=== PATIENT | female | born 1990 | race Caucasian/White ===

== ENCOUNTER 2018-05-26 13:53 | Emergency (ER) | payer OTHER ==
[~2018-05-26] VITALS: Ht 154.9 cm; Wt 77.1 kg
[~2018-05-26 13:53] MED LIST: FLUO-387 PO; METF500T PO
[2018-05-26 13:56] VITALS: BP 131/76
--- NOTE | 2018-05-26 14:05 | NUR ---
PATIENT PRESENTS TO ED WITH C/O LEFT FOOT PAIN X 2 WEEKS; DENIES ANY INJURY;DENIES NUMBNESS/TINGLING SENSATION;PAIN IS AGGRAVATED BY PRESSURE. NO SKIN DISCOLORATION;SKIN IS PINK/WARM/DRY; AAOX4 WITH EVEN AND STEADY GAIT;PATIENT POSITIONED FOR COMFORT; HOB ELEVATED; BEDRAILS UP X2; BED DOWN. ER MD MADE AWARE OF PT STATUS.
--- NOTE | 2018-05-26 14:36 | NUR ---
xray at bedside.
--- NOTE | 2018-05-26 15:09 | NUR ---
Patient discharged with v/s stable. Written and verbal after care instructions given and explained. Patient alert, oriented and verbalized understanding of instructions. Ambulatory with by parent. All questions addressed prior to discharge. ID band removed. Patient advised to follow up with PMD. Rx of TRAMADOL given. Patient educated on indication of medication including possible reaction and side effects. Opportunity to ask questions provided and answered.
[2018-05-26 15:10] VITALS: BP 132/85
== END 2018-05-26 15:09 | disposition home or self-care (01) ==
LOC: MED 13:53
DX: M72.2 Plantar fascial fibromatosis (principal); E11.9 Type 2 diabetes mellitus without complications; Z79.84 Long term (current) use of oral hypoglycemic drugs; Z79.899 Other long term (current) drug therapy; Z88.0 Allergy status to penicillin
CPT/HCPCS: 73630; 82948; 99283; Q0092

== ENCOUNTER 2022-04-22 16:55 | Emergency (ER) | payer OTHER ==
[~2022-04-22] VITALS: Ht 154.9 cm; Wt 109.8 kg
[~2022-04-22 16:55] MED LIST changes: +METF-346 PO; -METF500T PO
[2022-04-22 17:22] VITALS: BP 126/87
--- NOTE | 2022-04-22 18:00 | NUR ---
32 Y/O FEMALE BIB SELF C/O CONSTIPATION AND GEN ABD [id number], PT STATES 1 EPISODE OF VOMITING WITH "TINGE OF BLOOD", TAKES PEPTO BISMOL WITH MODERATE EFFECT ALLERGY: PCN, PORK PMH: DM
[2022-04-22] MEDS ORDERED: ONDA-188 PO (18:54)
[2022-04-22] MEDS ORDERED: BEN10 PO (18:54)
[2022-04-22] MEDS ORDERED: MIRABULK PO (18:54)
[2022-04-22] MEDS ORDERED: DICYCLOMINE 10 MG CAP PO ONE (18:55)
[2022-04-22] MEDS ORDERED: ONDANSETRON 4 MG ODT PO ONE (18:55)
--- NOTE | 2022-04-22 19:04 | NUR ---
Patient discharged with v/s stable. Written and verbal after care instructions ABOUT CONSTIPATION given and explained. Patient alert, oriented and verbalized understanding of instructions. Ambulatory with steady gait. All questions addressed prior to discharge. ID band removed. Patient advised to follow up with PMD. Rx of BENTYL, MIRALAX, ZOFRAN ODT given. Patient educated on indication of medication including possible reaction and side effects. Opportunity to ask questions provided and answered.
== END 2022-04-22 19:04 | disposition home or self-care (01) ==
LOC: MED 16:55
DX: K59.00 Constipation, unspecified (principal); R11.2 Nausea with vomiting, unspecified; E11.9 Type 2 diabetes mellitus without complications; Z79.84 Long term (current) use of oral hypoglycemic drugs; Z79.899 Other long term (current) drug therapy; Z88.0 Allergy status to penicillin
CPT/HCPCS: 74018; 99283; Q0162

== ENCOUNTER 2022-07-09 12:17 | Emergency (ER) | payer OTHER ==
[~2022-07-09] VITALS: Ht 154.9 cm; Wt 112.9 kg
[~2022-07-09 12:17] MED LIST changes: +BEN10 PO; +MIRABULK PO; +ONDA-188 PO
[2022-07-09 12:28] VITALS: BP 114/89
--- NOTE | 2022-07-09 12:36 | NUR ---
PT AMBULATED TO BED 7
--- NOTE | 2022-07-09 12:37 | NUR ---
MD SHIELDS AT BEDSIDE FOR EVALUATION
[2022-07-09] MEDS ORDERED: ONDANSETRON 4 MG ODT PO ONE (12:50)
--- NOTE | 2022-07-09 12:52 | NUR ---
XRAY AT BEDSIDE
--- NOTE | 2022-07-09 12:55 | NUR ---
32YO FEMALE PT C/O MID ABD PAIN X4DAYS. REPORTS SUDDEN ONSET W/ PAIN AT MOST AFTER HAVING BM. STATES TAKING BENTYL W/ MILD RELIEF. ABD NON DISTENED OR TENDER. DENIES N/V/D, CONSTIPATION, FEVER CHILLS OR CHANGE IN DIET. PT AAOX4, HOB POSITIONED PER COMFORT HX: IBS ALLERGIES: PENICILLIN
--- NOTE | 2022-07-09 12:59 | NUR ---
LAB AT BEDSIDE
[2022-07-09 13:09] LABS: BASOPHILS # (AUTO) 0.1 K/uL (0.00-0.22); BASOPHILS % (AUTO) 0.7 % (0.0-2.0); EOSINOPHILS # (AUTO) 0.2 K/uL (0-0.4); EOSINOPHILS % (AUTO) 1.8 % (0.0-4.0); HEMATOCRIT 39.3 % (36-48); HEMOGLOBIN 13.3 g/dL (12.0-16.0); LYMPHOCYTES # (AUTO) 3.3 K/uL (2.5-16.5); LYMPHOCYTES % (AUTO) 32.2 % (20.5-51.1); MEAN CORPUSCULAR HEMOGLOBIN 29 pg (27-31); MEAN CORPUSCULAR HGB CONC 34 g/dL (33-37); MEAN CORPUSCULAR VOLUME 84.4 fL (80-94); MONOCYTES # (AUTO) 0.5 K/uL (0.8-1.0); MONOCYTES % (AUTO) 4.7 % (1.7-9.3); NEUTROPHILS # (AUTO) 6.3 K/uL (1.8-7.7); NEUTROPHILS % (AUTO) 60.6 % (42.2-75.2); PLATELET COUNT (AUTO) 276 K/uL (140-450); RED BLOOD CELL COUNT(AUTO) 4.66 MIL/uL (4.20-5.40); RED CELL DISTRIBUTION WIDTH 13.5 % (11.6-13.7); WHITE BLOOD COUNT (AUTO) 10.3 K/uL (4.8-10.8)
[2022-07-09 13:25] LABS: ALBUMIN 3.8 g/dL (3.4-5.0); ANION GAP 12.5 (8-16); CARBON DIOXIDE 27.6 mmol/L (21-32); CREATININE 0.8 mg/dL (0.6-1.3); POTASSIUM 4.1 mmol/L (3.5-5.1); TOTAL BILIRUBIN 0.2 mg/dL (0.0-1.0)
[2022-07-09] MEDS ORDERED: DOCU-299 PO (13:53)
[2022-07-09] MEDS ORDERED: POLY17PD72 PO (13:53)
--- NOTE | 2022-07-09 14:23 | NUR ---
Patient discharged with v/s stable. Written and verbal after care instructions ABOUT CONSTIPATION given and explained. Patient alert, oriented and verbalized understanding of instructions. Ambulatory with steady gait. All questions addressed prior to discharge. ID band removed. Patient advised to follow up with PMD. Rx of COLACE AND CLEARLAX given. Patient educated on indication of medication including possible reaction and side effects. Opportunity to ask questions provided and answered.
--- NOTE | 2022-07-09 14:25 | NUR ---
The patient's care was reviewed and supervised by Frida Mccormick RN.
== END 2022-07-09 14:25 | disposition home or self-care (01) ==
LOC: MED 12:17
DX: R10.9 Unspecified abdominal pain (principal); E11.9 Type 2 diabetes mellitus without complications; Z79.899 Other long term (current) drug therapy; Z91.018 Allergy to other foods; Z88.0 Allergy status to penicillin
CPT/HCPCS: 36415; 74018; 80053; 83690; 84703; 85025; 99284; Q0162

== ENCOUNTER 2022-09-17 15:37 | Emergency (ER) | payer OTHER ==
[~2022-09-17] VITALS: Ht 157.5 cm; Wt 90.7 kg
[~2022-09-17 15:37] MED LIST changes: +DOCU-299 PO; +POLY17PD72 PO
[2022-09-17 15:53] VITALS: BP 122/76
--- NOTE | 2022-09-17 16:04 | NUR ---
MD SHIELDS AT BEDSIDE FOR EVALUATION
--- NOTE | 2022-09-17 16:10 | NUR ---
Pt bibs for abd pain x 2 days. Pain is constant, worse with movement, non radiating, 8/10, sometime pressure helps the pain. Denies abnormalities when urinating or passing stool. Pt is a/o x 4, vss, no ss of acute distress, breathing equal and unlabored, speech clear. UA labeled and sent to lab.
[2022-09-17 16:20] LABS: BASOPHILS % (AUTO) 0.3 % (0.0-2.0); EOSINOPHILS # (AUTO) 0.2 K/uL (0-0.4); EOSINOPHILS % (AUTO) 2.1 % (0.0-4.0); HEMATOCRIT 39.2 % (36-48); HEMOGLOBIN 13.2 g/dL (12.0-16.0); LYMPHOCYTES # (AUTO) 2.4 K/uL (2.5-16.5); LYMPHOCYTES % (AUTO) 29.7 % (20.5-51.1); MEAN CORPUSCULAR HEMOGLOBIN 28 pg (27-31); MEAN CORPUSCULAR HGB CONC 34 g/dL (33-37); MEAN CORPUSCULAR VOLUME 84.5 fL (80-94); MONOCYTES # (AUTO) 0.4 K/uL (0.8-1.0); NEUTROPHILS # (AUTO) 5.1 K/uL (1.8-7.7); NEUTROPHILS % (AUTO) 62.9 % (42.2-75.2); PLATELET COUNT (AUTO) 310 K/uL (140-450); RED BLOOD CELL COUNT(AUTO) 4.64 MIL/uL (4.20-5.40); RED CELL DISTRIBUTION WIDTH 13.9 % (11.6-13.7); WHITE BLOOD COUNT (AUTO) 8.2 K/uL (4.8-10.8)
[2022-09-17 16:39] LABS: ALBUMIN 3.9 g/dL (3.4-5.0); ANION GAP 12.1 (8-16); CARBON DIOXIDE 27.1 mmol/L (21-32); CREATININE 0.7 mg/dL (0.6-1.3); POTASSIUM 4.2 mmol/L (3.5-5.1); TOTAL BILIRUBIN 0.4 mg/dL (0.0-1.0)
[2022-09-17] MEDS ORDERED: ACET-1182 PO (17:51)
--- NOTE | 2022-09-17 18:15 | NUR ---
Pt requesting pain medication before dc. MD notified and gave order for medication before dc.
[2022-09-17] MEDS ORDERED: KETOROLAC 15 MG/ML VIAL IVP ONE (18:30)
--- NOTE | 2022-09-17 18:41 | NUR ---
Medicated as ordered, pt tolerated well. Patient discharged with v/s stable. Written and verbal after care instructions given and explained. Patient alert, oriented and verbalized understanding of instructions. Ambulatory with steady gait. All questions addressed prior to discharge. ID band removed. Patient advised to follow up with PMD. Patient educated on indication of medication including possible reaction and side effects. Opportunity to ask questions provided and answered.
[2022-09-17 18:49] VITALS: BP 119/73
[2022-09-17 19:46] LABS: APPEARANCE,URINE CLEAR (CLEAR); BILIRUBIN,URINE NEGATIVE (NEGATIVE); BLOOD, URINE NEGATIVE (NEGATIVE); COLOR,URINE YELLOW (YELLOW); LEUKOCYTE ESTERASE ,URINE NEGATIVE (NEGATIVE); NITRITE, URINE NEGATIVE (NEGATIVE); UGLUCOSE NEGATIVE (NEGATIVE)
== END 2022-09-17 18:49 | disposition home or self-care (01) ==
LOC: MED 15:37
DX: R10.33 Periumbilical pain (principal); E11.9 Type 2 diabetes mellitus without complications; Z79.899 Other long term (current) drug therapy; Z88.0 Allergy status to penicillin; Z79.84 Long term (current) use of oral hypoglycemic drugs
CPT/HCPCS: 36415; 74177; 76705; 80053; 81003; 81025; 83690; 84703; 85025; 96374; 99285; J1885; Q0092; Q9967

== ENCOUNTER 2022-11-19 15:14 | Emergency (ER) | payer OTHER ==
[~2022-11-19] VITALS: Ht 154.9 cm; Wt 112.2 kg
[~2022-11-19 15:14] MED LIST changes: +ACET-1182 PO
[2022-11-19 15:30] VITALS: BP 141/80; PULSE 87; RESP 20; TEMP 96.8; O2SAT 98
[2022-11-19] MEDS ORDERED: KETOROLAC 30 MG/ML VIAL IM ONE (16:05)
[2022-11-19] MEDS ORDERED: KETOROLAC 30 MG/ML VIAL ONE (17:33)
[2022-11-19 17:55] VITALS: BP 138/80; PULSE 82; RESP 20; TEMP 97.8; O2SAT 98
--- NOTE | 2022-11-19 17:55 | NUR ---
Patient discharged with v/s stable. Written and verbal after care instructions given and explained. Patient verbalized understanding. Ambulatory USING CRUTCHES. All questions addressed prior to discharge. Advised to follow up with PMD.
== END 2022-11-19 17:55 | disposition home or self-care (01) ==
LOC: MED 15:14
DX: S93.492A Sprain of other ligament of left ankle, initial encounter (principal); E11.9 Type 2 diabetes mellitus without complications; Z79.4 Long term (current) use of insulin; Z79.899 Other long term (current) drug therapy; W50.2XXA Accidental twist by another person, initial encounter; Y93.89 Activity, other specified; Y92.89 Other specified places as the place of occurrence of the external cause; Y99.8 Other external cause status
CPT/HCPCS: 73610; 73630; 96372; 99284; J1885

== ENCOUNTER 2023-03-23 21:40 | Emergency (ER) | payer OTHER ==
[~2023-03-23] VITALS: Ht 154.9 cm; Wt 108.9 kg
[2023-03-23 22:11] VITALS: BP 137/89; PULSE 75; RESP 16; TEMP 97.4; O2SAT 99
[2023-03-24 00:01] VITALS: BP 156/91; PULSE 86; RESP 10; O2SAT 98
[2023-03-24 00:13] LABS: BASOPHILS # (AUTO) 0.1 K/uL (0.00-0.22); BASOPHILS % (AUTO) 0.7 % (0.0-2.0); EOSINOPHILS # (AUTO) 0.1 K/uL (0-0.4); EOSINOPHILS % (AUTO) 0.5 % (0.0-4.0); HEMATOCRIT 40.6 % (36-48); HEMOGLOBIN 13.7 g/dL (12.0-16.0); LYMPHOCYTES # (AUTO) 2.7 K/uL (2.5-16.5); LYMPHOCYTES % (AUTO) 28.1 % (20.5-51.1); MEAN CORPUSCULAR HEMOGLOBIN 29 pg (27-31); MEAN CORPUSCULAR HGB CONC 34 g/dL (33-37); MONOCYTES # (AUTO) 0.4 K/uL (0.8-1.0); NEUTROPHILS # (AUTO) 6.5 K/uL (1.8-7.7); NEUTROPHILS % (AUTO) 66.7 % (42.2-75.2); PLATELET COUNT (AUTO) 273 K/uL (140-450); RED BLOOD CELL COUNT(AUTO) 4.77 MIL/uL (4.20-5.40); RED CELL DISTRIBUTION WIDTH 13.2 % (11.6-13.7); WHITE BLOOD COUNT (AUTO) 9.8 K/uL (4.8-10.8)
[2023-03-24 00:31] LABS: ALBUMIN 3.7 g/dL (3.4-5.0); BILIRUBIN,DIRECT 0.2 mg/dL (0.0-0.3); TOTAL BILIRUBIN 0.7 mg/dL (0.0-1.0); TOTAL PROTEIN, SERUM 8.2 g/dL (6.4-8.2)
[2023-03-24 00:35] LABS: CALCIUM 9.1 mg/dL (8.5-10.1); CARBON DIOXIDE 26.6 mmol/L (21-32); CREATININE 0.7 mg/dL (0.6-1.3); POTASSIUM 3.6 mmol/L (3.5-5.1)
[2023-03-24 03:08] VITALS: O2SAT 98
[2023-03-24] MEDS ORDERED: IBUP-2213 PO (03:52)
== END 2023-03-24 03:58 | disposition home or self-care (01) ==
LOC: MED 21:40
DX: S20.213A Contusion of bilateral front wall of thorax, initial encounter (principal); R10.9 Unspecified abdominal pain; E11.9 Type 2 diabetes mellitus without complications; Z79.899 Other long term (current) drug therapy; Z79.1 Long term (current) use of non-steroidal anti-inflammatories (NSAID); Z88.0 Allergy status to penicillin; W05.1XXA Fall from non-moving nonmotorized scooter, initial encounter; Y93.89 Activity, other specified; Y92.89 Other specified places as the place of occurrence of the external cause; Y99.8 Other external cause status
CPT/HCPCS: 36415; 71046; 80048; 80076; 81025; 83690; 85025; 99284

== ENCOUNTER 2023-05-16 17:58 | Emergency (ER) | payer OTHER ==
[~2023-05-16] VITALS: Ht 154.9 cm; Wt 108.9 kg
[~2023-05-16 17:58] MED LIST changes: +IBUP-2213 PO
[2023-05-16 18:16] VITALS: BP 150/90; PULSE 95; RESP 20; TEMP 97.6; O2SAT 98
[2023-05-16] MEDS ORDERED: KETOROLAC 30 MG/ML VIAL IM ONE (19:55)
[2023-05-16] MEDS ORDERED: ACET-11169 PO (20:09)
[2023-05-16 20:34] VITALS: BP 138/86; PULSE 80; RESP 16; TEMP 97.6; O2SAT 98
== END 2023-05-16 20:34 | disposition home or self-care (01) ==
LOC: MED 17:58
DX: S52.124A Nondisplaced fracture of head of right radius, initial encounter for closed fracture (principal); E11.9 Type 2 diabetes mellitus without complications; Z79.899 Other long term (current) drug therapy; Z79.1 Long term (current) use of non-steroidal anti-inflammatories (NSAID); Z88.0 Allergy status to penicillin; W18.39XA Other fall on same level, initial encounter; Y92.89 Other specified places as the place of occurrence of the external cause; Y93.89 Activity, other specified; Y99.8 Other external cause status
CPT/HCPCS: 29105; 73080; 96372; 99283; J1885